=== PATIENT | female | born 1965 | race Caucasian/White ===

== ENCOUNTER 2016-03-30 10:26 | Emergency (ER) | payer OTHER, BC ==
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
[2016-03-30 15:10] VITALS: BP 118/79
== END 2016-03-30 15:12 | disposition home or self-care (01) ==
LOC: ER 10:26
DX: M54.2 Cervicalgia (principal); M25.512 Pain in left shoulder; M54.89 Other dorsalgia; V43.62XA Car passenger injured in collision with other type car in traffic accident, initial encounter; Z90.710 Acquired absence of both cervix and uterus
CPT/HCPCS: 99283